=== PATIENT | male | born 1950 | race African-American/Black ===

== ENCOUNTER 2020-02-22 08:53 | Emergency (ER) | payer MEDICARE, OTHER ==
[~2020-02-22] VITALS: Ht 188 cm; Wt 82.0 kg
[2020-02-22 08:57] VITALS: BP 134/76
[2020-02-22] MEDS ORDERED: METO-539 PO (08:57)
== END 2020-02-22 10:55 | disposition left against medical advice (07) ==
LOC: ER 08:53
DX: R06.4 Hyperventilation (principal); F43.9 Reaction to severe stress, unspecified; Z86.73 Personal history of transient ischemic attack (TIA), and cerebral infarction without residual deficits
CPT/HCPCS: 93005; 99283